=== PATIENT | female | born 1980 | race African-American/Black ===

== ENCOUNTER 2017-08-22 23:10 | Emergency (ER) | payer MEDICAID ==
[~2017-08-22] VITALS: Ht 154.9 cm; Wt 73.0 kg
[2017-08-22 23:47] VITALS: BP 135/73
== END 2017-08-23 00:29 | disposition left against medical advice (07) ==
LOC: ER 23:10
DX: R10.9 Unspecified abdominal pain (principal); R11.0 Nausea
CPT/HCPCS: 99281

== ENCOUNTER 2017-11-11 10:25 | Emergency (ER) | payer SELFPAY ==
[~2017-11-11] VITALS: Ht 154.9 cm; Wt 71.0 kg
[2017-11-11 11:08] LABS: COLOR URINE YELLOW (YELLOW); KETONES URINE NEGATIVE (NEGATIVE); LEUKOCYTE ESTERASE URINE NEGATIVE (NEGATIVE); NITRITE URINE NEGATIVE (NEGATIVE); OCCULT BLOOD URINE NEGATIVE (NEGATIVE); PH URINE 6.5 (4.5-8.0); PROTEIN URINE NEGATIVE (NEGATIVE); SPECIFIC GRAVITY URINE 1.022 (1.005-1.030); UROBILINOGEN URINE 0.2 E.U./dL (0.2-1.0)
[2017-11-11] MEDS ORDERED: KETOROLAC 30MG/ML VIAL IV STA (11:14)
[2017-11-11] MEDS ORDERED: ONDANSETRON HCL 4MG/2ML VIAL IV STA (11:14)
[2017-11-11] MEDS ORDERED: SODIUM CHLORIDE 0.9% 1,000 ML IV ONE (11:14)
[2017-11-11] MEDS ORDERED: MORPHINE SULFATE 4 MG/ML CPJ (NOT FOR IM USE) IV STA (11:14)
[2017-11-11 11:16] LABS: CLARITY URINE CLEAR (CLEAR)
[2017-11-11 11:37] LABS: BASOPHILS % 0.4 % (0.0-2.0); EOSINOPHILS % 0.8 % (0.0-5.0); HEMATOCRIT. 37.6 % (36.0-48.0); HEMOGLOBIN. 12.7 g/dL (12.0-16.0); LYMPHOCYTES % 32.3 % (20.0-50.0); MEAN CORPUSCULAR HEMOGLOBIN 29.5 pg (28.0-32.0); MEAN CORPUSCULAR VOLUME 87.5 fL (81.0-99.0); MONOCYTES % 10.7 % (2.0-8.0); NEUTROPHILS % 55.8 % (40.0-76.0); PLATELET 298 x1000/uL (130-400); RED CELL DISTRIBUTION WIDTH 12.4 % (11.6-14.6)
[2017-11-11 11:44] LABS: CHLORIDE 105 mEq/L (98-107); PROTHROMBIN TIME 10.7 sec (9.4-11.6)
[2017-11-11 11:56] LABS: HCG SCREEN NEGATIVE
[2017-11-11 14:01] VITALS: BP 125/68
== END 2017-11-11 14:40 | disposition home or self-care (01) ==
LOC: ER 10:25
DX: R10.31 Right lower quadrant pain (principal); N20.0 Calculus of kidney; D25.9 Leiomyoma of uterus, unspecified; F17.200 Nicotine dependence, unspecified, uncomplicated; Z90.89 Acquired absence of other organs
CPT/HCPCS: 36415; 74176; 80053; 81003; 83690; 84484; 84703; 85025; 85610; 96361; 96374; 96375; 99285; J1885; J2405; J7030

== ENCOUNTER 2018-06-07 21:14 | Emergency (ER) | payer SELFPAY ==
[~2018-06-07] VITALS: Ht 154.9 cm; Wt 70.5 kg
[2018-06-07 21:22] VITALS: BP 147/72
== END 2018-06-07 23:55 | disposition left against medical advice (07) ==
LOC: ER 23:55
DX: Z53.21 Procedure and treatment not carried out due to patient leaving prior to being seen by health care provider (principal)

== ENCOUNTER 2018-06-08 08:09 | Emergency (ER) | payer MEDICAID ==
[~2018-06-08] VITALS: Ht 152.4 cm; Wt 70.0 kg
[2018-06-08] MEDS ORDERED: KETOROLAC 30MG/ML VIAL IV STA (14:48)
[2018-06-08] MEDS ORDERED: SODIUM CHLORIDE 0.9% 1,000 ML IV ONE (14:48)
[2018-06-08 15:51] LABS: BASOPHILS % 0.6 % (0.0-2.0); EOSINOPHILS % 0.9 % (0.0-5.0); HEMATOCRIT. 40.1 % (36.0-48.0); LYMPHOCYTES % 25.4 % (20.0-50.0); MEAN CORPUSCULAR VOLUME 89.5 fL (81.0-99.0); MEAN PLATELET VOLUME 9.1 fl (7.4-10.4); MONOCYTES % 9.6 % (2.0-8.0); NEUTROPHILS % 63.5 % (40.0-76.0); PLATELET 298 x1000/uL (130-400); RED BLOOD CELL COUNT 4.48 mill/uL (4.2-5.4); RED CELL DISTRIBUTION WIDTH 12.8 % (11.6-14.6)
[2018-06-08 15:55] LABS: PROTHROMBIN TIME 10.1 sec (9.1-11.1)
[2018-06-08 16:02] LABS: CHLORIDE 108 mEq/L (98-107)
[2018-06-08 17:04] LABS: CLARITY URINE CLOUDY (CLEAR); COLOR URINE YELLOW (YELLOW); KETONES URINE TRACE (NEGATIVE); LEUKOCYTE ESTERASE URINE NEGATIVE (NEGATIVE); NITRITE URINE NEGATIVE (NEGATIVE); OCCULT BLOOD URINE NEGATIVE (NEGATIVE); PROTEIN URINE NEGATIVE (NEGATIVE); SPECIFIC GRAVITY URINE 1.032 (1.005-1.030)
[2018-06-08 19:58] VITALS: BP 129/81
== END 2018-06-08 20:03 | disposition home or self-care (01) ==
LOC: ER 08:23
DX: R10.0 Acute abdomen (principal)
CPT/HCPCS: 36415; 74176; 76705; 76830; 76856; 80053; 81003; 81025; 83690; 85025; 85610; 96374; 99284; J1885; J7030